=== PATIENT | female | born 1965 | race Caucasian/White ===

== ENCOUNTER 2017-12-12 17:22 | Emergency (ER) | payer BC, OTHER ==
[2017-12-12] MEDS: ALBUTEROL 0.083% (NEB) 2.5 MG/3 ML AMP HHN (19:14)
[2017-12-12] MEDS: IPRATROPIUM (NEB) 0.5 MG/2.5 ML AMP HHN (19:14)
[2017-12-12] MEDS: predniSOLONE (3 MG/ML) CUP PO (19:15)
[2017-12-12] MEDS: LIDOCAINE 1% (MDV) 20 ML INJ SC (19:15)
[2017-12-12] MEDS: CEFTRIAXONE 1 GM INJ IM (19:15)
== END 2017-12-12 20:17 | disposition home or self-care (01) ==
LOC: FTE 17:22
DX: A49.9 Bacterial infection, unspecified (principal); R50.9 Fever, unspecified
CPT/HCPCS: 94664; 96372; 99284-25